=== PATIENT | female | born 1955 | race African-American/Black ===

== ENCOUNTER 2016-03-07 08:59 | Observation (INO) ==
[2016-02-28 13:49] LABS: Basophils % 0.5 % (0.0-0.8); Eosinophils # 0.2 10*3/uL (0.0-0.87); Eosinophils % 1.8 % (0.00-10.9); Hematocrit 36.8 VOL% (35.7-47.0); Hemoglobin 12.6 GM/DL (12.0-16.0); Immature Granulocytes % 0.4 %; Immature Granulocytes Absolute 0.03 #; Lymphocytes # 2.6 10*3/uL (1.4-4.0); Lymphocytes % 31.4 % (21.3-54.2); Mean Corpuscular HGB Conc 34.2 GM/DL (32-36); Mean Corpuscular Hemoglobin 29 PG (27-34); Mean Corpuscular Volume 85.4 FL (87-102); Mean Platelet Volume 9.8 FL (9.6-12.0); Monocytes # 0.6 10*3/uL (0.11-0.8); Monocytes % 6.7 % (1.7-12.7); Neutrophils % 59.2 % (38.7-73.9); Platelet Count 304 10*3/uL (130-400); Red Blood Count 4.31 10*6/uL (3.8-5.5); Red Cell Distribution Width 12.8 % (9.3-17.3); White Blood Count 8.4 10*3/uL (4.5-13.71)
[2016-02-28 14:11] LABS: Calcium 8.4 MG/DL (8.5-10.1); Potassium 3.2 MMOL/L (3.5-5.1)
[2016-03-07] MEDS ORDERED: ceFAZolin 1,000 MG VIAL ONE (10:44)
[2016-03-07] MEDS ORDERED: SODIUM CHLORIDE 0.9% 100 ML IV ONE (10:44)
[2016-03-07] MEDS ORDERED: PANTOPRAZOLE 40 MG TABLET PO ONE ×2 (11:56→11:59)
[2016-03-07] MEDS ORDERED: DIAZEPAM 5 MG TABLET PO ONE (11:56)
[2016-03-07] MEDS ORDERED: DIAZEPAM 5 MG TABLET ONE (11:59)
[2016-03-07] MEDS ORDERED: LACTATED RINGERS 1,000 ML IV SCH (12:00)
[2016-03-07] MEDS ORDERED: BUPIVACAINE MPF 0.25% /EPI 30 ML VIAL ONE (12:26)
[2016-03-07] MEDS ORDERED: LIDOCAINE 1%/EPI INJ 20 ML VIAL ONE (12:27)
[2016-03-07] MEDS ORDERED: KETOROLAC 30 MG/1 ML VIAL ONE (13:21)
[2016-03-07] MEDS ORDERED: DEXAMETHASONE 4 MG/1 ML VIAL ONE ×2 (13:21→14:25)
[2016-03-07] MEDS ORDERED: ROCURONIUM 100 MG/10 ML VIAL IV ONE ×2 (13:21→14:25)
[2016-03-07] MEDS ORDERED: PROPOFOL 200 MG/20 ML VIAL IV ONE ×2 (13:21→14:24)
[2016-03-07] MEDS ORDERED: GLYCOPYRROLATE 0.4 MG/2 ML VIAL ONE ×2 (13:21→14:25)
[2016-03-07] MEDS ORDERED: ONDANSETRON 4 MG/2 ML VIAL ONE ×3 (13:21→15:39)
[2016-03-07] MEDS ORDERED: LIDOCAINE 2% 5 ML VIAL ONE (13:21)
[2016-03-07] MEDS ORDERED: MIDAZOLAM 2 MG/2 ML VIAL ONE (14:24)
[2016-03-07] MEDS ORDERED: SEVOFLURANE 1 UNIT/15 MINUTE INH ONE (14:24)
[2016-03-07] MEDS ORDERED: ACETAMINOPHEN 1,000 MG/100 ML VIAL IV ONE (14:25)
[2016-03-07] MEDS ORDERED: NEOSTIGMINE 10 MG/10 ML VIAL ONE (14:25)
--- NOTE | 2016-03-07 15:15 | Anesthesia ---
Anesthesia Post OP - Post Ansesthetic Evaluation Patient seen in post op: Yes Resp: within normal limits CV: within normal limits Mental: within normal limits Temp: within normal limits [id number]: within normal limits Nausea and Vomiting: within normal limits Pain: within normal limits
--- NOTE | 2016-03-07 15:21 | Operative Note ---
Date of procedure: 03/07/16 Pre-op diagnosis: abdominal pain right lower quadrant Post-op diagnosis: same Procedure: Laparoscopic converted to open small bowel enteroclysis and mobilization of cecum Findings and technique: After informed consent was obtained the patient was brought the operating room placed in spine position. After successful induction with general anesthesia the patient's abdomen was prepped and draped in usual sterile fashion. Local anesthesia was infiltrated at the umbilicus where an open technique was used to enter the peritoneal cavity under direct camera vision. An open technique was used and a pneumoperitoneum was established. With the camera in place of visualize the right lower quadrant where there were extensive adhesions. I placed a 5 mm port in the left lower quadrant and in the right upper quadrant under camera vision. Tedious dissection was carried out lysing adhesions over the terminal ileum and the right pelvic sidewall mobilizing the terminal ileum to the ileocecal valve. Cecum was also adherent to the pelvic sidewall and this had to be sharply lysed mobilizing the cecum medially. There were extensive adhesions between the terminal ileum and end of the cecum and I tediously carefully dissected this free from one another but could not visualize an appendix. There was still extensive adhesions posteriorly and I was afraid to try to do anymore dissection with laparoscopic approach. I then made a small incision through her old right lower quadrant scar and did further dissection along the posterior aspect of the cecum exposing the entire cecal base and no appendix was identified. It appeared that her pain could've been from the adhesions in the right lower quadrant. I saw no masses or abnormalities other than extensive postoperative changes in this location. No bleeding was noted and the fascial defect closed with a running 0 PDS suture and the skin of all incisions with skin clips. She appeared to tolerate the procedure well Anesthesia: MIGUEL, local Surgeon / Physician: Isiah Gonzalez III. Estimated blood loss: minimal Specimens: none sent Condition: stable Disposition: PACU Results - Labs CBC & BMP: 02/28/16 13:41 02/28/16 13:41 Discharge Plan - Discharge Medications No Action Levothyroxine Tab [Synthroid Tab] 0.075 mcg PO DAILY hydroCHLOROthiazide [Hydrochlorothiazide] 25 mg PO DAILY #30 tablet amLODIPine [Norvasc] 10 mg PO DAILY Potassium Chloride Cap/Tab [K Dur] 8 meq PO BID - Follow Up or Referral - Forms/Instructions
[2016-03-07] MEDS ORDERED: HYDROmorphone 2 MG/1 ML VIAL IV PRN (15:23)
[2016-03-07] MEDS ORDERED: ONDANSETRON 4 MG/2 ML VIAL IV PRN ×2 (15:23→15:24)
[2016-03-07] MEDS ORDERED: MORPHINE 2 MG/1 ML SYRINGE IV PRN (15:24)
[2016-03-07] MEDS ORDERED: HYDROmorphone 2 MG/1 ML VIAL ONE (15:50)
[2016-03-07 16:14] LABS: Hematocrit 35.4 VOL% (35.7-47.0); Hemoglobin 11.6 GM/DL (12.0-16.0)
[2016-03-07] MEDS: POTASSIUM CHLORIDE 8 MEQ CAPSULE PO SCH (21:15)
[2016-03-07 23:33] LABS: Hematocrit 34.5 VOL% (35.7-47.0); Hemoglobin 11.5 GM/DL (12.0-16.0)
--- NOTE | 2016-03-08 06:54 | Event Note ---
She feels well. She has minimal pain and only some soreness in her lower abdomen around the incision area her vital signs are stable and her hematocrit is stable. She should be fine for discharge home today with plans to follow-up in my office in one week
[2016-03-08 07:32] LABS: Hematocrit 33.6 VOL% (35.7-47.0); Hemoglobin 11.3 GM/DL (12.0-16.0)
[2016-03-08] MEDS ORDERED: hydroCHLOROthiazide 25 MG TABLET PO SCH (09:00)
[2016-03-08] MEDS ORDERED: amLODIPine 10 MG TABLET PO SCH (09:00)
[2016-03-08] MEDS ORDERED: LEVOTHYROXINE 75 MCG TABLET PO SCH (09:00)
[2016-03-08] MEDS: POTASSIUM CHLORIDE 8 MEQ CAPSULE PO SCH (09:01)
--- NOTE | 2016-03-08 09:18 | Discharge Summary ---
Hospital Course - Hospital Course Hospital Course: [id number] admitted by dr uriel corral persistent right lower quadrant pain. she was taken to the OR on 03/07/16 for laparoscopic converted to open small bowel enterolysis and mobilization of the cecum. she is doing great postop. she is eating, urinating and ambulating and requesting to go home. dc home w 1wk fu w dr uriel TORRES. dc instructions were given. - Time spent with patient Time with patient DS: Less than 30 minutes Discharge Plan - Discharge Data Disposition: Disch To Home/Self Care Condition at Discharge: Stable Discharge Diet: advance to your usual diet Activity: increase activity as tolerated, no lifting Hygiene: may shower Driving: other (no driving if taking pain pills) Contact your physician if you experience:: fever over 101, Nausea/Vomiting Wound / Dressing Care Instructions: ok to shower daily w mild soap and water, pat dry. ok to leave open to the air or cover prn w bandaids. - Discharge Medications New HYDROcodone/ACETAMIN 7.5-325 [[place] 7.5-325] 1 tablet PO Q4H PRN #30 tablet PRN Reason: Pain Moderate (4-7) Continue Levothyroxine Tab [Synthroid Tab] 0.075 mcg PO DAILY hydroCHLOROthiazide [Hydrochlorothiazide] 25 mg PO DAILY #30 tablet amLODIPine [Norvasc] 10 mg PO DAILY Potassium Chloride Cap/Tab [K Dur] 8 meq PO BID - Follow Up or Referral Follow Up: Isiah Gonzalez III., MD [Physician] - 1 Week - Forms/Instructions Exam - Constitutional Vitals: Period Temp Pulse Resp BP Sys/Thompson Pulse Ox Last 24 Hr 98.2 F-98.8 F 76-91 10-20 98-132/60-85 93-100 Discharge Results Labs on day of discharge: Labs from last 24 hours 03/08/16 03/07/16 03/07/16 07:21 23:21 15:32 Hgb 11.3 L 11.5 L 11.6 L Hct 33.6 L 34.5 L 35.4 L DS: Provider Primary care physician: Nghia Anne MD Consults: 03/07/16 16:39 Consult to Pharmacy [CONS] Routine Reason for Pharmacy Consult: Adjust Meds Renal Funct Discharging clinician: YAYO Carrasquillo Expected date of discharge: 03/08/16
[2016-03-08 11:18] VITALS: BP 114/68
== END 2016-03-08 11:40 | disposition home or self-care (01) ==
LOC: N.OR 08:59 → N.SDSINP 10:07 → INTOOBSV 15:24 → EDSDCBED 15:24 → N.2E 16:30 → N.OR 03-08 11:40 → N.2E 03-13 14:43 → UNDODEPSDC 03-13 14:47
PROVIDERS: ADMIT Surgery; ATTEND Surgery

== ENCOUNTER 2019-04-07 16:58 | Observation (INO) ==
[2019-04-07 17:24] LABS: Basophils # 0.1 10*3/uL (0.0-0.2); Basophils % 0.4 % (0.0-0.8); Eosinophils # 0.2 10*3/uL (0.0-0.87); Eosinophils % 1.4 % (0.00-10.9); Hematocrit 37.5 VOL% (35.7-47.0); Hemoglobin 12.4 GM/DL (12.0-16.0); Immature Granulocytes % 0.4 %; Immature Granulocytes Absolute 0.05 #; Lymphocytes # 3.6 10*3/uL (1.4-4.0); Lymphocytes % 30.9 % (21.3-54.2); Mean Corpuscular HGB Conc 33.1 GM/DL (32-36); Mean Corpuscular Volume 87.6 FL (87-102); Mean Platelet Volume 9.7 FL (9.6-12.0); Monocytes % 5.4 % (1.7-12.7); Neutrophils % 61.5 % (38.7-73.9); Platelet Count 306 T/CUMM (130-400); Red Blood Count 4.28 MC/CUMM (3.8-5.5); Red Cell Distribution Width 13.8 % (9.3-17.3); White Blood Count 11.6 T/CUMM (4-12)
[2019-04-07 17:35] LABS: INR 0.9; Partial Thromboplastin Time 25.8 SECS (20.8-36.0)
[2019-04-07] MEDS ORDERED: ENOXAPARIN 100 MG/ML SYRINGE SUBCUT STA (17:43)
[2019-04-07] MEDS ORDERED: ASPIRIN 325 MG TABLET PO STA (17:43)
[2019-04-07 17:48] LABS: Alanine Aminotransferase 16 U/L (13-56); Albumin 3.7 G/DL (3.4-5.0); Alkaline Phosphatase 92 U/L (45-117); Aspartate Amino Transferase 18 U/L (0-37); Bilirubin,Total < 0.39 MG/DL (0.2-1.0); Blood Urea Nitrogen 11 MG/DL (7-18); Calcium 8.2 MG/DL (8.5-10.1); Estimated Glom Filtration Rate 82 ML/MIN; Glucose 139 MG/DL (74-106); Osmolality,Calculated 277.5 MOS/KG (273-304)
[2019-04-07] MEDS ORDERED: ONDANSETRON 4 MG/2 ML VIAL IV PRN (21:14)
[2019-04-07] MEDS ORDERED: ACETAMINOPHEN 325 MG TABLET PO PRN (21:14)
[2019-04-07] MEDS ORDERED: MORPHINE 4 MG/1 ML VIAL IV PRN (21:14)
[2019-04-07] MEDS ORDERED: GLUCAGON 1 MG VIAL IM PRN (21:18)
[2019-04-07] MEDS ORDERED: DEXTROSE 50% 25 GM/50 ML VIAL IV PRN (21:18)
[2019-04-07] MEDS ORDERED: ENOXAPARIN 40 MG/0.4 ML SYRINGE SUBCUT SCH (21:30)
[2019-04-08 00:28] LABS: Basophils % 0.3 % (0.0-0.8); Eosinophils # 0.3 10*3/uL (0.0-0.87); Eosinophils % 2.5 % (0.00-10.9); Hematocrit 35.5 VOL% (35.7-47.0); Hemoglobin 11.9 GM/DL (12.0-16.0); Immature Granulocytes % 0.3 %; Immature Granulocytes Absolute 0.03 #; Lymphocytes # 4.2 10*3/uL (1.4-4.0); Lymphocytes % 35.3 % (21.3-54.2); Mean Corpuscular HGB Conc 33.5 GM/DL (32-36); Mean Corpuscular Volume 86.8 FL (87-102); Mean Platelet Volume 9.7 FL (9.6-12.0); Neutrophils % 56.6 % (38.7-73.9); Platelet Count 277 T/CUMM (130-400); Red Blood Count 4.09 MC/CUMM (3.8-5.5); Red Cell Distribution Width 13.8 % (9.3-17.3); White Blood Count 11.8 T/CUMM (4-12)
[2019-04-08 00:48] LABS: Calcium 8.1 MG/DL (8.5-10.1); Osmolality,Calculated 280.5 MOS/KG (273-304)
[2019-04-08] MEDS ORDERED: POTASSIUM CHLORIDE RIDER 10 MEQ in PREMIX 1 EACH IV PRN (04:51)
[2019-04-08] MEDS ORDERED: POTASSIUM CHLORIDE 20 MEQ TABLET PO PRN (04:51)
[2019-04-08] MEDS ORDERED: LEVOTHYROXINE 75 MCG TABLET PO SCH (06:30)
[2019-04-08] MEDS ORDERED: GLIMEPIRIDE 2 MG TABLET PO SCH (08:00)
[2019-04-08 08:07] LABS: Risk Ratio 3.88; VLDL CHOLESTEROL 49.6 MG/DL
[2019-04-08] MEDS: INSULIN REGULAR 100 UNIT/ML SUBCUT SCH ×2 (08:31→12:30)
[2019-04-08] MEDS ORDERED: hydroCHLOROthiazide 25 MG TABLET PO SCH (09:00)
[2019-04-08] MEDS ORDERED: PANTOPRAZOLE 40 MG TABLET PO SCH ×2 (09:00)
[2019-04-08] MEDS ORDERED: ASPIRIN EC 81 MG TABLET PO SCH (09:00)
[2019-04-08] MEDS ORDERED: POTASSIUM CHLORIDE 20 MEQ TABLET PO SCH (09:00)
[2019-04-08] MEDS ORDERED: amLODIPine 10 MG TABLET PO SCH (09:00)
[2019-04-08] MEDS ORDERED: METOPROLOL TARTRATE 25 MG TABLET PO SCH (09:00)
[2019-04-08 09:09] VITALS: BP 115/70
[2019-04-08] MEDS ORDERED: SIMVASTATIN 10 MG TABLET PO SCH (21:00)
[2019-04-08] MEDS ORDERED: AMITRIPTYLINE 50 MG TABLET PO SCH (21:00)
== END 2019-04-08 15:46 | disposition home or self-care (01) ==
LOC: N.EDINP 16:58 → N.ED 16:58 → N.TELES 22:12
PROVIDERS: ADMIT Internal Medicine; ATTEND Internal Medicine